=== PATIENT | male | born 1995 | race African-American/Black ===

== ENCOUNTER 2018-03-31 21:28 | Emergency (ER) | payer SELFPAY ==
[2018-03-31 21:28] VITALS: BP 165/96; PULSE 76; RESP 23; TEMP 37.2; O2SAT 96; BMI 27.1
--- NOTE | 2018-03-31 21:43 | EKG12_ITS ---
Test Reason : OD Blood Pressure : / mmHG Vent. Rate : 086 BPM Atrial Rate : 086 BPM P-R Int : 168 ms QRS Dur : 094 ms QT Int : 356 ms P-R-T Axes : 064 058 002 degrees QTc Int : 426 ms Normal sinus rhythm Nonspecific T wave abnormality Abnormal ECG Confirmed by CONRAD OSORIO, BULL ([id number]), online content editor CORY MARQUEZ ([id number]) on 04/04/2018 10:44:40 AM Referred By: MNOTANA Confirmed By:BULL MARTINES MD
[2018-03-31] MEDS: 0.9% Normal Saline 1,000 ML 1000 ML IV ×2 (21:48→22:33)
--- NOTE | 2018-03-31 21:50 | RAD_ITS ---
STUDY: X-RAY CHEST REASON FOR EXAM: Male, 22 years old. Unresponsive TECHNIQUE: COMPARISON: None. FINDINGS: The lungs are clear and expanded. There is no demonstrated pleural abnormality. Normal size heart. Normal mediastinum and stefani. Normal visualized pulmonary arteries. Normal visualized aortic arch and descending thoracic aorta. Normal visualized thoracic spine. Normal visualized ribs, clavicles, and shoulders. There is no demonstrated abnormality of the visualized soft tissue structures of the upper abdomen. RAD/Chest 1 View (Portable) IMPRESSION: Normal x-ray examination of the chest. Electronically Signed: Kaela Song MD at 22:09 EST Tel , Service support ,
--- NOTE | 2018-03-31 22:04 | ED.DCSUM_ITS ---
- ER Visit Summary Date of Service: 03/31/18 Chief Complaint: [] Drug overdose suicidal ideation History of Present Illness: The patient is a 22 M [] by EMS apparently per EMS and police there was a call to home the patient was upstairs on the floor of the bedroom unconscious, individuals there who apparently on the home claimed they did not know anything about the patient even his name, the indicated the patient had been expressing some suicidal thoughts and they reported he took Keflex doxycycline and then Xanax and Benadryl, he was brought to the emergency department on arrival his vital signs are stable 165/9596 pulse ox 96 on room air he is very sleepy he is arousable he does admit to taking the medications as above admits to being suicidal cannot provide any other history he denies any complaints of head neck chest or abdominal pain and there was no note dictated trauma Physical Examination: [] vs Signs as above he is groggy, he opens his eyes he answers questions yes and no when asked if he has any complaints of head neck chest or abdominal pain he denies his airways intact his pupils are 3 mm and reactive his lungs sound clear heart tones are normal the abdomen soft nontender upper lower extremities unremarkable he is moving all 4 extremities is no signs of trauma his GCS is 15 Test Results: [] Emergency Department Course and Treatment: [] Did immediately begin resuscitation with IV fluids screening labs etc. 2 female individuals came in later one was reportedly his friend the other reportedly was his sister none of this could be confirmed, the female friend refused to allow staff to execute the treatment plan I had ordered including fluids x-rays etc. I went to discuss all the above with these 2 individuals and the female friend began to get very vulgar and verbally abusive toward me and staff saying things like fuck all you doctors and other profane language, I explained to her that this verbal abuse would not be tolerated we would not allow her to interfere with the care of the patient and I ordered her out of the emergency department if necessary under police escort, at this time we will continue our resuscitation of the patient and will try to confirm the identity o f these 2 individuals and if the other individual is a sister we will provide information The black female who is with him is his sister his stepmother is also here now the other white female who was causing disruption in the patient's care is not related to the patient per the family The family confirms that the patient did verbalize to them this evening that he was depressed and suicidal, apparently has a court case tomorrow there is issues related to custody of children, he was quite upset about that he indicates the sister he was about to overdose she went to the home were all this occurred and found him semiconscious she does not know exactly what he took, the family reports the patient asked has no past history of any medical problems, he has no psychiatric or behavioral health history Treatment Plan: [] Time he remains awake alert his vital signs are stable we will obtain a screening labs admission may be required pending all of the above for medical clearance and then he will be seen by mental health services 11 PM, the patient is awake and alert now conversant his labs are generally unremarkable his tox screen is positive for an acetaminophen level of 11 repeat is pending at this time he is turned over to the evening physician but ultimate final disposition if he is medically stable his tox screens are negative will be via mental health services evaluation Disposition: [] Pending ED evaluation and mental health evaluation Impression: [] Drug overdose suicidal ideation This note was generated with [employer] dictation software. It may contain incorrect words, spelling, and punctuation that were not noted in review of the chart prior to signing ED Disposition - Plan for ED Patient: Chief Complaint: Overdose Referrals: Care Physician,No Primary [Primary Care Provider] -
[2018-03-31 22:08] LABS: Absolute Lymphocyte Count 1.81 X10^3/ul (0.83-4.51); Absolute Neutrophil Count 2.6 X10^3/uL (2.0-7.7); Basophil# 0.01 X10^3/uL; Basophil% 0.2 % (0-1); Eosinophil# 0.06 X10^3/uL; Eosinophils% 1.2 % (0-5); Hematocrit 45.2 % (40-54); Hemoglobin 16.1 g/dl (13.0-16.5); Lymphocyte # 1.81 X10^3/ul (4.0); Lymphocyte % 37.5 % (19-41); Mean Corp Hgb Conc 35.6 g/gl (32-36); Mean Corpuscular Hgb 32.4 pg (27.0-32.0); Mean Corpuscular Volume 90.9 fL (80-94); Mean Platelet Vol. 10.7 fl (6.2-12.0); Monocyte# 0.36 X10^3/uL; Monocyte% 7.5 % (0-10); Neutrophil # 2.58 X10^3/uL (2.7-7.7); Neutrophil % 53.4 % (47-70); Platelet Count 201 K/mm3 (150-450); RBC Distribution Width CV 12.9 % (11.6-14.6); RBC Distribution Width SD 42.9 fl (35.1-43.9); Red Blood Count 4.97 M/mm3 (4.6-6.2); White Blood Count 4.8 K/mm3 (4.4-11.0)
--- NOTE | 2018-03-31 22:10 | ED.RN ---
Patient one on one sitter started at this time. Previous observation was one on one with nurse at the bedside
[2018-03-31 22:14] LABS: POSITIVE COUNT NO; POSITIVE DIFFERENTIAL NO; POSITIVE MORPHOLOGY NO
[2018-03-31 22:28] VITALS: PULSE 83; RESP 14
[2018-03-31 22:31] VITALS: BP 148/67; PULSE 79; RESP 25; O2SAT 96
--- NOTE | 2018-03-31 22:31 | ED.RN ---
DRIVERS LICENSE GIVEN TO KEISHA.
[2018-03-31 22:32] VITALS: O2SAT 96
--- NOTE | 2018-03-31 22:38 | ED.RN ---
WHEN ASKED WHY THE PT WANTED TO HURT HIMSELF, HE STATED BECAUSE HE WAS DEPRESSED.
[2018-03-31 22:41] LABS: Anion Gap 6 (5-15); BUN 12 mg/dL (7-18); BUN/Creat Ratio 10.3 RATIO (10-20); Calcium,Total 9.2 mg/dL (8.5-10.1); Chloride 102 mmol/L (98-107); Creatinine, Serum 1.17 mg/dL (0.70-1.30); EST Glomerular Filtration Rate 82 mL/min (>60); Est Glom Filt Rate - Afr Amer 99 mL/min (>60); Estimated Creatinine Clearance 91.81 ml/min; Glucose 120 mg/dL (74-106); Potassium 3.3 mmol/L (3.5-5.1); Sodium Level 138 mmol/L (136-145)
[2018-03-31 22:46] LABS: Amphetamine Urine VISTA NEGATIVE (<1000 ng/mL); Barbiturate Urine VISTA NEGATIVE (< 200 ng/mL); Benzodiazepine Urine VISTA NEGATIVE (< 200 ng/mL); Cocaine Urine VISTA NEGATIVE (< 300 ng/mL); Ecstacy Urine VISTA NEGATIVE (< 500 ng/mL); Methadone Urine VISTA NEGATIVE (< 300 ng/mL); PCP Urine VISTA NEGATIVE (< 25 ng/mL); THC Urine VISTA NEGATIVE (< 50 ng/mL); Vista UDS pH Range 6
[2018-03-31 22:55] LABS: Salicylate < 1.7 mg/dL (2.8-20.0)
[2018-03-31 23:00] VITALS: BP 139/74; PULSE 92
--- NOTE | 2018-03-31 23:23 | ED.RN ---
crisis called and will be in to see patient
--- NOTE | 2018-03-31 23:29 | ED.RN ---
patients family took home patient clothing at this time
[2018-04-01] VITALS: BP 137/90; PULSE 87; RESP 21; O2SAT 97
[2018-04-01 00:23] LABS: Acetaminophen (Tylenol) Level 27.9 ug/mL (10.0-30.0)
[2018-04-01 01:00] VITALS: BP 142/62; PULSE 87; RESP 16; O2SAT 98
[2018-04-01 01:36] LABS: Acetaminophen (Tylenol) Level 27.2 ug/mL (10.0-30.0)
[2018-04-01 02:00] VITALS: BP 133/70; PULSE 87; RESP 16; O2SAT 96
--- NOTE | 2018-04-01 02:17 | ED.DEP ---
ED Disposition - Plan for ED Patient: Chief Complaint: Overdose Instructions: Counseling for Depression Referrals: Care Physician,No Primary [Primary Care Provider] - Counseling,Center [GROUP OF PHYSICIANS] -
[2018-04-01 02:34] VITALS: BP 133/72; PULSE 81; RESP 16; O2SAT 99
--- OUTSIDE RECORDS SUMMARY | 2018-05-18 03:38 | XMS RPT_ITS ---
:1995 Author Organization [facility] Care Team Providers Name Role Phone Primay Care Physicia, No Primary Care Unavailable Evangelina Rosario Attending Unavailable PROBLEMS PROBLEMS No Problem Records FoundPROCEDURES PROCEDURES No Procedure Records FoundRESULTS RESULTS 12 LEAD ELECTROCARDIOGRAM Observed: 04/04/2018 Status: F Source: [place] 10:45 AM [facility] REPOSITORY [facility] Cardiovascular Services [address] [place] [address] 12 Lead EKG 03/31/18 2202 MR#: [id number] Acct: [id number] Name: MATTEO SANTORO Rep #: [id number] : 1995 22 From: Anuj Martines MD Attending Dr: Status: DEP ER Ordering Dr: Evangelina Rosario MD Date: 03/31/18 Location: ED Sex: M AA Admitted: Test Reason : OD Blood Pressure : / mmHG Vent. Rate : 086 BPM Atrial Rate : 086 BPM P-R Int : 168 ms QRS Dur : 094 ms QT Int : 356 ms P-R-T Axes : 064 058 002 degrees QTc Int : 426 ms Normal sinus rhythm Nonspecific T wave abnormality Abnormal ECG Confirmed by ANUJ MARTINES MD ([id number]), publication editor CORY MARQUEZ ([id number]) on 04/04/2018 10:44:40 AM Referred By: SJ Confirmed By:ANUJ MARTINES MD 04/04/18 1044 Date Anuj Martines MD CC: MD Navjot Rosario; No Primary Care Physician Signed EMERGENCY DEPARTMENT Observed: 04/01/2018 Status: C Source: [place] SUMMARY 2:23 AM [facility] REPOSITORY [facility] Medical Records Department [address] [place] [address] Emergency Department Summary 03/31/18 2151 MR#: [id number] Acct: [id number] Name: MATTEO SANTORO Rep #: [id number] : 1995 22 From: Evangelina Rosario MD PCP: Care Physician, No Primary Status: REG ER ADDENDUM by Nyla Garcia MD on 04/01/18 at 0223 Patient was seen by the counseling center. They feel he is safe for discharge home with family. He contracted for safety. His initial Tylenol level was 11.0. A 3-hour level was 27.9. 4-hour level was obtained and is 27.2. Patient was set up for a counseling center appointment this week. He is advised to return to ED if he has any worsening complaints Date Nyla Garcia MD cc: No Primary Care Physician * Addendum - ER Visit Summary Date of Service: 03/31/18 Chief Complaint: [] Drug overdose suicidal ideation History of Present Illness: The patient is a 22 M [] by EMS apparently per EMS and police there was a call to home the patient was upstairs on the floor of the bedroom unconscious, individuals there who apparently on the home claimed they did not know anything about the patient even his name, the indicated the patient had been expressing some suicidal thoughts and they reported he took Keflex doxycycline and then Xanax and Benadryl, he was brought to the emergency department on arrival his vital signs are stable 165/9596 pulse ox 96 on room air he is very sleepy he is arousable he does admit to taking the medications as above admits to being suicidal cannot provide any other history he denies any complaints of head neck chest or abdominal pain and there was no note dictated trauma Physical Examination: [] vs Signs as above he is groggy, he opens his eyes he answers questions yes and no when asked if he has any complaints of head neck chest or abdominal pain he denies his airways intact his pupils are 3 mm and reactive his lungs sound clear heart tones are normal the abdomen soft nontender upper lower extremities unremarkable he is moving all 4 extremities is no signs of trauma his GCS is 15 Test Results: [] Emergency Department Course and Treatment: [] Did immediately begin resuscitation with IV fluids screening labs etc. 2 female individuals came in later one was reportedly his friend the other reportedly was his sister none of this could be confirmed, the female friend refused to allow staff to execute the treatment plan I had ordered including fluids x-rays etc. I went to discuss all the above with these 2 individuals and the female friend began to get very vulgar and verbally abusive toward me and staff saying things like fuck all you doctors and other profane language, I explained to her that this verbal abuse would not be tolerated we would not allow her to interfere with the care of the patient and I ordered her out of the emergency department if necessary under police escort, at this time we will continue our resuscitation of the patient and will try to confirm the identity of these 2 individuals and if the other individual is a sister we will provide information The black female who is with him is his sister his stepmother is also here now the other white female who was causing disruption in the patient's care is not related to the patient per the family The family confirms that the patient did verbalize to them this evening that he was depressed and suicidal, apparently has a court case tomorrow there is issues related to custody of children, he was quite upset about that he indicates the sister he was about to overdose she went to the home were all this occurred and found him semiconscious she does not know exactly what he took, the family reports the patient asked has no past history of any medical problems, he has no psychiatric or behavioral health history Treatment Plan: [] Time he remains awake alert his vital signs are stable we will obtain a screening labs admission may be required pending all of the above for medical clearance and then he will be seen by mental health services 11 PM, the patient is awake and alert now conversant his labs are generally unremarkable his tox screen is positive for an acetaminophen level of 11 repeat is pending at this time he is turned over to the evening physician but ultimate final disposition if he is medically stable his tox screens are negative will be via mental health services evaluation Disposition: [] Pending ED evaluation and mental health evaluation Impression: [] Drug overdose suicidal ideation This note was generated with Dragon dictation software. It may contain incorrect words, spelling, and punctuation that were not noted in review of the chart prior to signing ED Disposition - Plan for ED Patient: Chief Complaint: Overdose Referrals: Care Physician,No Primary [Primary Care Provider] - What to do if you have Problems For any increased pain, shortness of breath, bleeding, nausea or vomiting, chest pain, or any unexpected problems, contact your Primary Care Provider. Call [facility] ([phone]) or report to the closest Emergency Room. Call 911 if necessary. 03/31/18 2300 <Electronically signed by Evangelina Rosario MD> Date Evangelina Rosario MD Cosigner Signature (If Indicated): Date CC: No Primary Care Physician DISCHARGE INSTRUCTION Observed: 04/01/2018 Status: F Source: [place] 2:18 AM [facility] REPOSITORY [facility] Medical Records Department [address] [place] [address] Discharge Instruction 04/01/18216 MR#: [id number] Acct: [id number] Name: MATTEO SANTORO Rep #: [id number] : 1995 22 From: Nyla Garcia MD PCP: Care Physician, No Primary Status: REG ER ED Disposition - Plan for ED Patient: Chief Complaint: Overdose Instructions: Counseling for Depression Referrals: Care Physician,No Primary [Primary Care Provider] - Counseling,Center [GROUP OF PHYSICIANS] - What to do if you have Problems For any increased pain, shortness of breath, bleeding, nausea or vomiting, chest pain, or any unexpected problems, contact your Primary Care Provider. Call [facility] ([phone]) or report to the closest Emergency Room. Call 911 if necessary. 04/01/18217 <Electronically signed by Nyla Garcia MD> Date Nyla Aparicio Signature (If Indicated): Date CC: No Primary Care Physician ACETAMINOPHEN (TYLENOL) Collected: 04/01/2018 Status: F Source: [place] LEVEL 12:50 AM [facility] REPOSITORY TYPE CODE TESTS RESULT OUT OF REFERENCE UNITS RANGE LAB L501.8400 10.0-30.0 ug/mL ACETAMINOPHEN Normal 27.2 Performed By: #### L501.8400 #### [facility] Laboratory [address] [place], [place], [address] ACETAMINOPHEN (TYLENOL) Collected: 03/31/2018 Status: F Source: [place] LEVEL 11:40 PM [facility] REPOSITORY TYPE CODE TESTS RESULT OUT OF REFERENCE UNITS RANGE LAB L501.8400 10.0-30.0 ug/mL ACETAMINOPHEN Normal 27.9 Performed By: #### L501.8400 #### [facility] Laboratory [address] [place], [place], [address] URINE DRUG SCREEN Collected: 03/31/2018 Status: F Source: [place] (VISTA) 10:05 PM [facility] REPOSITORY TYPE CODE TESTS RESULT OUT OF RANGE REFERENCE UNITS LAB L505.0075 TO BE Normal CONFIRMED Result Comment: CONFIRMATORY TESTING FOR ALL POSITIVE URINE DRUG SCREEN RESULTS WILL ONLY BE SENT OUT UPON PHYSICIAN ORDER. VISTA Urine Drug Screen methods provide only preliminary analytical test results. A more specific alternate chemical method must be used in order to obtain a confirmed analytical result. Gas chromatography/mass spectrometery (GC/MS) is the preferred confirmatory method. Clinical consideration and professional judgement should be applied to any drug of abuse test result, particularly when preliminary positive results are used. URINE TCA TESTING MUST BE ORDERED SEPARATELY. USE TEST MNEMONIC: [facility] LAB L505.5005 VISTA UDS PH 6 Normal LAB L505.5015 <1000 ng/mL AMPHETAMINES Normal NEGATIVE LAB L505.5025 < 200 ng/mL BARBITIURATES Normal NEGATIVE LAB L505.5035 < 200 ng/mL BENZODIAZIPINE Normal NEGATIVE LAB L505.5045 < 300 ng/mL COCAINE Normal NEGATIVE LAB L505.5055 < 500 ng/mL ECSTACY Normal NEGATIVE LAB L505.5065 < 300 ng/mL METHADONE Normal NEGATIVE LAB L505.5075 < 300 ng/mL OPIATES Normal NEGATIVE LAB L505.5085 < 25 ng/mL PCP Normal NEGATIVE LAB L505.5095 < 50 ng/mL THC Normal NEGATIVE Performed By: #### L505.5000 #### [facility] [address] [place], [address] CHEST 1 VIEW Observed: 03/31/2018 Status: F Source: [place] (PORTABLE) 9:45 PM [facility] REPOSITORY [facility] Imaging Services [address] [place] [address] Chest 1 View (Portable) MR#: [id number] Acct: [id number] Name: MATTEO SANTORO Rep #: [id number] : 1995 M 22 From: Kaela Song MD PCP: Care Physician, No Primary Status: PRE ER Study: Chest 1 View (Portable) Date of Exam: 03/31/18 Exam# [id number] Ordering Dr: Evangelina Rosario MD STUDY: X-RAY CHEST REASON FOR EXAM: Male, 22 years old. Unresponsive TECHNIQUE: COMPARISON: None. FINDINGS: The lungs are clear and expanded. There is no demonstrated pleural abnormality. Normal size heart. Normal mediastinum and stefani. Normal visualized pulmonary arteries. Normal visualized aortic arch and descending thoracic aorta. Normal visualized thoracic spine. Normal visualized ribs, clavicles, and shoulders. There is no demonstrated abnormality of the visualized soft tissue structures of the upper abdomen. RAD/Chest 1 View (Portable) IMPRESSION: Normal x-ray examination of the chest. Electronically Signed: Kaela Song MD at 22:09 EST Tel , Service support , CC: MD Navjot Rosario; No Primary Care Physician Senior It Auditor: Signed CBC W/DIFF, AUTOMATED Collected: 03/31/2018 Status: F Source: [place] 9:35 PM [facility] REPOSITORY TYPE CODE TESTS RESULT OUT OF RANGE REFERENCE UNITS LAB L100.1000 4.4-11.0 K/mm3 Normal WBC 4.8 LAB L100.1200 4.6-6.2 M/mm3 Normal RBC 4.97 LAB L100.1300 13.0-16.5 g/dl Normal HGB 16.1 LAB L100.1400 40-54 % Normal HCT 45.2 LAB L100.1500 80-94 fL Normal MCV 90.9 LAB L100.1600 27.0-32.0 pg High MCH 32.4 LAB L100.1700 32-36 g/gl Normal MCHC 35.6 LAB L100.1810 11.6-14.6 % Normal RDW CV 12.9 LAB L100.1820 35.1-43.9 fl Normal RDW SD 42.9 LAB L100.1900 150-450 K/mm3 Normal PLT 201 LAB L100.2000 6.2-12.0 fl Normal MPV 10.7 LAB L100.2100 47-70 % Normal NEUT% 53.4 LAB L100.2200 19-41 % Normal LY% 37.5 LAB L100.2300 0-10 % Normal MONO% 7.5 LAB L100.2400 0-5 % Normal EO% 1.2 LAB L100.2500 0-1 % Normal BASO% 0.2 LAB L100.2550 0.0-0.9 % Normal IM GRAN % 0.200 Result Comment: IG% - Immature Granulocytes (promyelocytes, myelocytes and metamyelocytes) > 1% indicates that a LEFT SHIFT is Present. LAB L100.2620 2.0-7.7 X10 3/uL Normal Absolute Neut 2.6 LAB L100.2720 0.83-4.51 X10 3/ul Normal Absolute Lymph 1.81 Performed By: #### L100.0100 #### [facility] [address] [place], [address] BASIC METABOLIC Collected: 03/31/2018 Status: F Source: [place] PROFILE (BMP) 9:35 PM [facility] REPOSITORY TYPE CODE TESTS RESULT OUT OF RANGE REFERENCE UNITS LAB L501.0100 74-106 mg/dL High GLU 120 Result Comment: Fasting Glucose result from 100 to 125 mg/dL suggests IMPAIRED HOMEOSTASIS per A.D.A. criteria. Please note revised GLUCOSE reference range effective 2017. LAB L501.1000 7-18 mg/dL Normal BUN 12 LAB L501.1100 0.70-1.30 mg/dL Normal CREAT,SERUM 1.17 Result Comment: The validity of the calculated GFR AND GFRAA in patients over 70 years has not been determined. Clinical correlation is essential. LAB L501.1110 >60 mL/min Normal EST GFR 82 Result Comment: Non- GFR Calc LAB L501.1115 >60 mL/min Normal EST GFR - AA 99 Result Comment: GFR Calc LAB L501.1255 ml/min Normal Estimated CRCL 91.81 LAB L501.1300 10-20 RATIO Normal BUN/CRE 10.3 LAB L501.2200 8.5-10 mg/dL Normal .1 CA 9.2 LAB L501.5300 136-14 mmol/L Normal 5 NA 138 LAB L501.5600 3.5-5. mmol/L Low 1 K 3.3 LAB L501.5900 98-107 mmol/L Normal CL 102 LAB L501.6100 21.0-3 mmol/L Normal 2.0 CO2 30.0 LAB L501.6200 5-15 Normal GAP 6 Performed By: #### L500.2500, L501.4010 #### [facility] [address] [place], [place], [address] TROPONIN-I Collected: 03/31/2018 Status: F Source: [place] 9:35 PM [facility] REPOSITORY TYPE CODE TESTS RESULT OUT OF RANGE REFERENCE UNITS LAB L501.4010 <0.045 ng/mL Normal < 0.015 TROPONIN-I Result Comment: TROPONIN-I EXPECTED VALUES <0.045 Negative 0.045 - 0.590 Consistent with Cardiac Damage > OR = 0.600 Critical Value Not every elevated troponin is indicative of PA. These values should be used with clinical judgement in examining the patient's clinical picture for diagnosis. To establish a diagnosis of PA versus myocardial injury, there must be a demonstrated rise and/or fall in the troponin values, in addition to ischemic symptoms, EKG changes, new regional wall motion abnormality, and/or angiographical evidence. PLEASE NOTE: REFERENCE RANGES EDITED 17 Performed By: #### L500.2500, L501.4010 #### [facility] [address] [place], [address] ACETAMINOPHEN (TYLENOL) Collected: 03/31/2018 Status: F Source: [place] LEVEL 9:35 PM [facility] REPOSITORY TYPE CODE TESTS RESULT OUT OF REFERENCE UNITS RANGE LAB L501.8400 10.0-30.0 ug/mL ACETAMINOPHEN Normal 11.0 Performed By: #### L501.8400, L501.9100 #### [facility] [address] [place], [address] ALCOHOL, BLOOD Collected: 03/31/2018 Status: F Source: [place] (MEDICAL)-SERUM 9:35 PM [facility] REPOSITORY TYPE CODE TESTS RESULT OUT OF RANGE REFERENCE UNITS LAB L501.9100 mg/dL Normal SERUM 11.0 ETOH Result Comment: The serum:whole blood ethanol ratio is approximately 1.14 and varies slightly with hematocrit. Medical Alcohol reference interval and critical value in non-tolerant individuals; 50 - 100 Impairment 100 Intoxication 100 - 250 Severe Poisoning 250 - 400 Deep/possible fatal coma Performed By: #### L501.8400, L501.9100 #### [facility] [address] [place], [address] SALICYLATE Collected: 03/31/2018 Status: F Source: [place] 9:35 PM [facility] REPOSITORY TYPE CODE TESTS RESULT OUT OF REFERENCE UNITS RANGE LAB L501.8300 2.8-20.0 mg/dL Low SALICYLATE < 1.7 Performed By: #### L501.8300 #### [facility] [address] [place], [address] PROGRESS Observed: 07/31/2017 Status: COMPLETED Source: [place] 6:54 PM [facility] REPOSITORY O ID: [id number] Author: Kat Parker Service: (none) Author Type: Nurse Practitioner Type: Progress Notes Filed: 07/31/2017 7:08 PM Note Text: Subjective HPI HPI Matteo Santoro is a 21 year old male who presents today for CC of left ear pain This started yesterday He denies any fever, loss of hearing or drainage Symptoms are worsened by nothing He has tried peroxide, motrin, with slight relief. Risk factors wears ear plugs at work PMH cerumen impaction BP 110/80 Pulse 88 Temp 37.1 ?C (98.7 ?F) (Tympanic) Resp 16 Wt 80.7 kg (178 lb) ALLERGIES No Known Allergies There is no problem list on file for this patient. No family history on file. Social History Marital status: Single Spouse name: Years of education: Number of children: Social History Main Topics Smoking status: Current Every Day Smoker Packs/day: 0.00 Years: 0.00 Smokeless status: Never Used Review of Systems Constitutional: Negative. Negative for chills, fever and malaise/fatigue. HENT: Positive for ear pain (presure). Negative for congestion, sinus pain and sore throat. Respiratory: Negative for cough, sputum production, shortness of breath and wheezing. Cardiovascular: Negative for chest pain. Musculoskeletal: Negative for myalgias. Skin: Negative for rash. Neurological: Negative for headaches. Objective Physical Exam Constitutional: He is oriented to person, place, and time and well-developed, well-nourished, and in no distress. HENT: Head: Normocephalic and atraumatic. Right Ear: Tympanic membrane, external ear and ear canal normal. Tympanic membrane is not injected, not erythematous, not retracted and not bulging. No middle ear effusion. Left Ear: Ear canal normal. There is drainage (cerumen impaction). Tympanic membrane is bulging (bubbles present). Tympanic membrane is not injected, not erythematous and not retracted. A middle ear effusion (serous) is present. Nose: Nose normal. Right sinus exhibits no maxillary sinus tenderness and no frontal sinus tenderness. Left sinus exhibits no maxillary sinus tenderness and no frontal sinus tenderness. Mouth/Throat: Uvula is midline, oropharynx is clear and moist and mucous membranes are normal. No oropharyngeal exudate, posterior oropharyngeal edema, posterior oropharyngeal erythema or tonsillar abscesses. Kat Parker APRN.NONPROFIT FUNDRAISER removed impacted cerumen using a plastic curette using standard procedure without complication. Patient tolerated procedure well See exam after removal in left ear Eyes: Conjunctivae and EOM are normal. Pupils are equal, round, and reactive to light. Neck: Normal range of motion. Neck supple. Pulmonary/Chest: Effort normal. Lymphadenopathy: Head (right side): No submental, no submandibular, no tonsillar, no preauricular and no posterior auricular adenopathy present. Head (left side): No submental, no submandibular, no tonsillar, no preauricular and no posterior auricular adenopathy present. He has no cervical adenopathy. Right: No supraclavicular adenopathy present. Left: No supraclavicular adenopathy present. Neurological: He is alert and oriented to person, place, and time. Skin: Skin is warm and dry. Psychiatric: Affect normal. Nursing note and vitals reviewed. ASSESSMENT/PLAN: 1. Impacted cerumen of left ear - ICD9: 380.4, ICD10: H61.22 Use may use OTC Debrox or Cerumenex for maintenance. Hydrogen peroxide and water to clean as needed Avoid inserting Q-tips into your ears. Follow up with your PCP as needed. Zyrtec 10 mg By mouth daily at bedtime 2. Acute serous otitis media of left ear, recurrence not specified - ICD9: 381.01, ICD10: H65.02 Flonase 1 spray each nostril two times a day. Zyrtec 10 mg By mouth daily at bedtime Diagnosis and treatment plan were discussed and questions were answered to the patient's satisfaction. Pt acknowledged understanding of concepts and follow up plan. Specific signs and symptoms that would indicate the need for higher level of care were discussed in detail warranting prompt ER evaluation. Kat Parker APRN.NONPROFIT FUNDRAISER CNOV Observed: 07/31/2017 Status: COMPLETED Source: [place] 6:45 PM [facility] REPOSITORY Office Visit ([facility]) MATTEO SANTORO ([id number]) 1995 M UPA Date Time Provider Department 07/31/17 6:45 PM KAT PARKER (MARY) [facility] During your visit today, we recorded the following information about you: Temperature Pulse Respiration Blood pressure 98.7 degrees 88/minute 16/minute 110/80 Weight 80.7 kg Kat Parker APRN.CNP 07/31/2017 7:08 PM Signed Subjective HPI HPI Matteo Santoro is a 21 year old male who presents today for CC of left ear pain This started yesterday He denies any fever, loss of hearing or drainage Symptoms are worsened by nothing He has tried peroxide, motrin, with slight relief. Risk factors wears ear plugs at work PMH cerumen impaction BP 110/80 Pulse 88 Temp 37.1 ?C (98.7 ?F) (Tympanic) Resp 16 Wt 80.7 kg (178 lb) ALLERGIES No Known Allergies There is no problem list on file for this patient. No family history on file. Social History Marital status: Single Spouse name: Years of education: Number of children: Social History Main Topics Smoking status: Current Every Day Smoker Packs/day: 0.00 Years: 0.00 Smokeless status: Never Used Review of Systems Constitutional: Negative. Negative for chills, fever and malaise/fatigue. HENT: Positive for ear pain (presure). Negative for congestion, sinus pain and sore throat. Respiratory: Negative for cough, sputum production, shortness of breath and wheezing. Cardiovascular: Negative for chest pain. Musculoskeletal: Negative for myalgias. Skin: Negative for rash. Neurological: Negative for headaches. Objective Physical Exam Constitutional: He is oriented to person, place, and time and well-developed, well-nourished, and in no distress. HENT: Head: Normocephalic and atraumatic. Right Ear: Tympanic membrane, external ear and ear canal normal. Tympanic membrane is not injected, not erythematous, not retracted and not bulging. No middle ear effusion. Left Ear: Ear canal normal. There is drainage (cerumen impaction). Tympanic membrane is bulging (bubbles present). Tympanic membrane is not injected, not erythematous and not retracted. A middle ear effusion (serous) is present. Nose: Nose normal. Right sinus exhibits no maxillary sinus tenderness and no frontal sinus tenderness. Left sinus exhibits no maxillary sinus tenderness and no frontal sinus tenderness. Mouth/Throat: Uvula is midline, oropharynx is clear and moist and mucous membranes are normal. No oropharyngeal exudate, posterior oropharyngeal edema, posterior oropharyngeal erythema or tonsillar abscesses. Kat Parker APRN.NONPROFIT FUNDRAISER removed impacted cerumen using a plastic curette using standard procedure without complication. Patient tolerated procedure well See exam after removal in left ear Eyes: Conjunctivae and EOM are normal. Pupils are equal, round, and reactive to light. Neck: Normal range of motion. Neck supple. Pulmonary/Chest: Effort normal. Lymphadenopathy: Head (right side): No submental, no submandibular, no tonsillar, no preauricular and no posterior auricular adenopathy present. Head (left side): No submental, no submandibular, no tonsillar, no preauricular and no posterior auricular adenopathy present. He has no cervical adenopathy. Right: No supraclavicular adenopathy present. Left: No supraclavicular adenopathy present. Neurological: He is alert and oriented to person, place, and time. Skin: Skin is warm and dry. Psychiatric: Affect normal. Nursing note and vitals reviewed. ASSESSMENT/PLAN: 1. Impacted cerumen of left ear - ICD9: 380.4, ICD10: H61.22 Use may use OTC Debrox or Cerumenex for maintenance. Hydrogen peroxide and water to clean as needed Avoid inserting Q-tips into your ears. Follow up with your PCP as needed. Zyrtec 10 mg By mouth daily at bedtime 2. Acute serous otitis media of left ear, recurrence not specified - ICD9: 381.01, ICD10: H65.02 Flonase 1 spray each nostril two times a day. Zyrtec 10 mg By mouth daily at bedtime Diagnosis and treatment plan were discussed and questions were answered to the patient's satisfaction. Pt acknowledged understanding of concepts and follow up plan. Specific signs and symptoms that would indicate the need for higher level of care were discussed in detail warranting prompt ER evaluation. BRAYDEN Mercedes APRN.CNP 07/31/2017 7:08 PM Addendum ASSESSMENT/PLAN: 1. Impacted cerumen of left ear - ICD9: 380.4, ICD10: H61.22 Use may use OTC Debrox or Cerumenex for maintenance. Hydrogen peroxide and water to clean as needed Avoid inserting Q-tips into your ears. Follow up with your PCP as needed. 2. Acute serous otitis media of left ear, recurrence not specified - ICD9: 381.01, ICD10: H65.02 Flonase 1 spray each nostril two times a day. Zyrtec 10 mg By mouth daily at bedtime Referring Provider: SELF [200] Allergies As of Date: 07/31/2017 (No Known Allergies) Date Reviewed: 07/31/2017 Reviewed by: Kat (Mary) Elena - Fully Assessed Reason for Visit: left ear pain [Other] Cmt: x 1 day Primary Visit Diagnosis:Impacted cerumen of left ear [H61.22] Other Visit Diagnosis:Acute serous otitis media of left ear, recurrence not specified [H65.02] Problem List As Of Date: 07/31/2017 (None) Other instructions from your clinician: ASSESSMENT/PLAN: 1. Impacted cerumen of left ear - ICD9: 380.4, ICD10: H61.22 Use may use OTC Debrox or Cerumenex for maintenance. Hydrogen peroxide and water to clean as needed Avoid inserting Q-tips into your ears. Follow up with your PCP as needed. 2. Acute serous otitis media of left ear, recurrence not specified - ICD9: 381.01, ICD10: H65.02 Flonase 1 spray each nostril two times a day. Zyrtec 10 mg By mouth daily at bedtime Letter Text Kat Parker APRN.CNP Urgent Care [address] [facility] [address] Dept: [phone] 07/31/2017 Matteo Santoro [address] [place] [id number] To Whom it May Concern: This is to certify that Matteo Santoro was seen at our office for medical care. Matteo may return to work on 08.01.2017. If you have any questions please feel free to call. Sincerely: Kat Parker APRN.CNP Encounter Status:Closed by KAT PARKER CNP on 07/31/17 ALLERGIES ALLERGIES DATE TYPE / CODE NAME / CODE REACTION SEVERITY SOURCE 03/31/2018 Drug No Known Unknown [facility] Allergy/416 Allergies/L42121 Hospital [id number](SNOM 0388(RXNORM) Repository ED CT) Drug NO KNOWN [facility] Class/35551 ALLERGIES [place] 1003(SNOMED Repository CT) ENCOUNTERS ENCOUNTERS ADMIT/DISCHARGE ACCOUNT ADMITTING ENCOUNTER LOCATION SOURCE NUMBER CLASS 03/31/2018/04/01/20 [id number] Emergency [address] ing:ED Repository 07/31/2017/08/02/19 [id number] Ambulatory [address] Repository PAYERS PAYERS ENCOUNTER GUARANTOR PAYER SUBSCRIBER SOURCE 03/31/2018 [facility]oro1855 [facility]:SELF PAY [address] Number: Effective Repository [id number]: [phone] Date:2018-03-31 [phone] ()
== END 2018-04-01 02:44 ==
PROVIDERS: Emergency Medicine; Emergency Provider Emergency Medicine
DX: T42.4X2A Poisoning by benzodiazepines, intentional self-harm, initial encounter (principal); T36.4X2A Poisoning by tetracyclines, intentional self-harm, initial encounter; T45.0X2A Poisoning by antiallergic and antiemetic drugs, intentional self-harm, initial encounter; Y92.009 Unspecified place in unspecified non-institutional (private) residence as the place of occurrence of the external cause
CPT/HCPCS: 36415; 71045; 80048; 80307; 80320; 80329; 84484; 85025; 93005; 99285; J7030; A4216; G0480

== ENCOUNTER 2018-10-17 22:58 | Emergency (ER) | payer SELFPAY ==
[2018-10-17 22:58] VITALS: BP 113/69; PULSE 93; RESP 14; TEMP 36.8; O2SAT 98; BMI 27.4
[2018-10-17] MEDS: Fluorescein 1 MG STRIP 1 STRIP RIGHT EYE (23:49)
[2018-10-17] MEDS: Tetracaine 0.5% Ophthalmic Bottle 1 DRP RIGHT EYE (23:49)
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
--- NOTE | 2018-10-17 23:56 | ED.DEP ---
ED Disposition - Plan for ED Patient: Disposition: Home or Assisted Living Instructions: Corneal Injury Referrals: Care Physician,No Primary [Primary Care Provider] - Ray Lomax MD [STAFF PHYSICIAN] -
[2018-10-18 00:06] VITALS: BP 110/79; PULSE 96; RESP 16; O2SAT 99
== END 2018-10-18 00:07 | disposition home or self-care (01) ==
PROVIDERS: Emergency Provider Emergency Medicine
DX: S05.01XA Injury of conjunctiva and corneal abrasion without foreign body, right eye, initial encounter (principal); X58.XXXA Exposure to other specified factors, initial encounter; Y93.9 Activity, unspecified; Y92.89 Other specified places as the place of occurrence of the external cause; Y99.9 Unspecified external cause status; Z72.0 Tobacco use
CPT/HCPCS: 99282

== ENCOUNTER 2018-12-22 09:08 | Emergency (ER) | payer SELFPAY ==
[2018-12-22 09:09] VITALS: BP 149/92; PULSE 95; RESP 16; TEMP 36.6; O2SAT 98; BMI 25.8
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
[2018-12-22] MEDS: Tetracaine 0.5% Ophthalmic Bottle 1 DRP RIGHT EYE (11:04)
[2018-12-22] MEDS: Fluorescein 1 MG STRIP 1 STRIP RIGHT EYE (11:04)
--- NOTE | 2018-12-22 11:10 | ED.DEP ---
ED Disposition - Plan for ED Patient: Disposition: Home or Assisted Living Instructions: ED Corneal Abrasion Referrals: Raimundo Goldberg MD [STAFF PHYSICIAN] - 1-2 Days if not improving Additional Instructions: Right eye. Sunglasses to prevent glare. Bacitracin eye ointment 2-3 times a day till gone. Tetracaine eyedrops for pain for the next 24 hours. Do not use them after Saturday night. They retard healing if you use them long-term. Tylenol Motrin for pain. Follow-up with an eye doctor if not improving.
== END 2018-12-22 11:23 | disposition home or self-care (01) ==
PROVIDERS: Emergency Provider Emergency Medicine
DX: S05.01XA Injury of conjunctiva and corneal abrasion without foreign body, right eye, initial encounter (principal); W51.XXXA Accidental striking against or bumped into by another person, initial encounter; Y93.83 Activity, rough housing and horseplay; Y92.9 Unspecified place or not applicable; Y99.9 Unspecified external cause status; Z72.0 Tobacco use
CPT/HCPCS: 99283

== ENCOUNTER 2023-10-01 10:06 | Emergency (ER) | payer OTHER, SELFPAY ==
[2023-10-01 10:07] VITALS: BP 137/95; PULSE 105; RESP 15; TEMP 37.2; O2SAT 99
--- NOTE | 2023-10-01 10:22 | EX.ED.DYSGE1 ---
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 EMS was called, he had pinpoint pupils so they gave him Narcan, and he woke up. They state that initially he had sonorous respirations and had sats in the 80s but upon waking up his saturations normalized. They checked a blood sugar and it was 240. Patient states he feels fine now. He states about an hour before this occurred, he took a single Percocet tablet because of dental pain has been having right third molar crowding-related. He states he is fairly certain he only took 1. He does not use any illicit substances. It was prescribed to him. He did not eat anything with it. He states when he was in the paint [place], he was there for only about 10 minutes, and he was wearing self-contained breathing apparatus and does not think he was smelling a lot of fumes. He states he was doing at the way he was supposed to at work. PFSH PFS Medical History no medical history no medical history Home Medications ?Medication ?Instructions ?Recorded ?Last Taken ?Type metformin 500 mg tablet 500 mg PO BID #60 tabs 10/01/23 Unknown Rx Allergy/AdvReac Type Severity Reaction Status Date / Time No Known Allergies Allergy Verified 10/01/23 10:18 Social History (Updated 10/01/23 @ 10:[address] Mukund Demarco MD) Smoking Status: Never smoker substance use type: does not use ROS ROS ED Constitutional Constitutional ED: Denies chills or fever(s) Eyes Eyes: Denies change in vision or diplopia ENT ENT ED: Reports as per HPI and dental pain; Denies rhinorrhea or sore throat Cardiovascular Cardiovascular: Denies chest pain or palpitations Respiratory/Chest Respiratory/Chest: Denies cough or dyspnea Gastrointestinal Gastrointestinal: Denies abdominal pain, diarrhea, nausea or vomiting Genitourinary Genitourinary ED: Denies dysuria or hematuria Musculoskeletal Musculoskeletal: Denies back pain or neck pain Integumentary Denies abscess or rash Neurologic Neurologic: Denies headache(s), paresthesias or weakness Psychiatric Psychiatric: Denies anxiety or suicidal thoughts EXAM Physical Exam Const Vital Signs: 10/01/23 10:07 Temperature 98.9 F Temperature Source Temporal Pulse Rate 105 H Respiratory Rate 15 Blood Pressure 137/95 H Blood Pressure Mean 109 Pulse Ox 99 Oxygen Delivery Method Room Air Positive well nourished and well developed General Appearance ED: well developed and NAD HEENT Reports moist mucous membranes HEENT Narrative: No trismus no dental abscess, no reproducible tenderness. normocephalic and atraumatic Eyes PERRL and EOMs intact bilaterally Neck full ROM and supple Resp normal respiratory effort and clear to auscultation bilaterally Cardio regular rate, regular rhythm and no murmurs GI non-tender and non-distended Auscultation: normoactive bowel sounds Palpation: soft Back/Spine no CVA tenderness General Back: other FROM Extremity normal to inspection General Extremety ED: Negative for edema, pulses abnormal or tenderness General Extremity: Negative for edema or pulses abnormal Neuro oriented x3, CN's II-XII intact bilaterally and no sensory deficits noted Sensorium / Orientation: awake and alert Motor Exam: strength 5/5 throughout Skin no rashes or lesions noted and no wounds MDM MDM MDM Narrative Medical decision making narrative: Patient looks well now with normal vital signs his pupils are 1 to 2 mm, and he is coherent and appears well. Obtaining some basic labs to assess kidney function but overall we will at least observe him until the Narcan wears off and reassess. 1.5 hours after arrival patient is doing well, asymptomatic. He has some mild hyperglycemia 235 on his chemistries, and his creatinine is 1.38 which is little higher than his old one. Patient is unaware of any diabetes diagnoses. He states his mom had it. He does not have a PCP. It is possible that his episode today had something to do with the equipment he was using in the [employer] [place], but also probably related to the fact that he took oxycodone an hour before work. I recommend that he not do that anymore, discussed all of this with him and his significant other, I am okay with him going home right now I think putting him on metformin 500 mg twice daily would be reasonable, and having him follow-up with the PCP. Refer to the next doctor on the unassigned list, Dr. Jordan. Lab Data Attestation: I reviewed the patient's lab results. Labs: Laboratory Results - last 24 hr 10/01/23 10:15 WBC 8.5 RBC 4.88 Hgb 14.4 Hct 44.3 MCV 90.8 MCH 29.5 MCHC 32.5 RDW Std Deviation 42.9 RDW Coeff of [place] 13.0 Plt Count 301 MPV 10.4 Immature Gran % (Auto) 0.400 Neut % (Auto) 31.2 L Lymph % (Auto) 56.6 H [place] % (Auto) 8.7 Eos % (Auto) 2.4 Baso % (Auto) 0.7 Absolute Neuts (auto) 2.6 Absolute Lymphs (auto) 4.79 H Nucleated RBC % 0 Sodium 137 Potassium 3.5 Chloride 106 Carbon Dioxide 22.0 Anion Gap 9 BUN 15 Creatinine 1.38 H Est GFR (MDRD) Af Amer 78 Est GFR (MDRD) Non-Af 65 BUN/Creatinine Ratio 10.9 Glucose 235 H Calcium 9.4 Discharge Plan Triage Chief Complaint: Overdose ED Provider: Mukund Demarco Dx/Rx/DC Orders Clinical Impression: Transient alteration of awareness, Hyperglycemia, Acute renal insufficiency Instructions: ED Renal Insufficiency, ED Hyperglycemia New Poss Diabetes Prescriptions: New metformin 500 mg tablet 500 mg PO BID Qty: 60 0RF Stand Alone Forms: ED Work / School Excuse Primary Care Provider: Care Physician,No Primary Referrals: Wayne Jordan, [Med Staff - Rotational Moulding Operator] - As soon as possible Care Physician,No Primary [Primary Care Provider] - Activity Restrictions/Additional Instructions: Avoid taking prescription narcotic before work or driving -- take aleve or ibuprofen instead and save the prescription for nighttime or when you know you will be at home for awhile. Print Language: Andorran Disposition Disposition: Home, Self Care
[2023-10-01 10:23] LABS: Absolute Lymphocyte Count 4.79 X10^3/uL (0.83-4.51); Absolute Neutrophil Count 2.6 X10^3/uL (2.0-7.7); Basophil# 0.06 X10^3/uL; Basophil% 0.7 % (0-1); Eosinophils% 2.4 % (0-5); Hematocrit 44.3 % (40-54); Hemoglobin 14.4 g/dL (13.0-16.5); Lymphocyte # 4.79 X10^3/ul (0.83-4.51); Lymphocyte % 56.6 % (19-41); Mean Corp Hgb Conc 32.5 g/dL (32-36); Mean Corpuscular Hgb 29.5 pg (27.0-32.0); Mean Corpuscular Volume 90.8 fL (80-94); Mean Platelet Vol. 10.4 fl (6.2-12.0); Monocyte# 0.74 X10^3/uL; Monocyte% 8.7 % (0-10); NRBC Flagged by Analyzer 0 % (0-5); Neutrophil # 2.64 X10^3/uL (2.7-7.7); Neutrophil % 31.2 % (47-70); Platelet Count 301 K/mm3 (150-450); RBC Distribution Width SD 42.9 fl (35.1-43.9); Red Blood Count 4.88 M/mm3 (4.6-6.2); White Blood Count 8.5 K/mm3 (4.4-11.0)
[2023-10-01 10:36] LABS: Anion Gap 9 (5-15); BUN 15 mg/dL (7-18); BUN/Creat Ratio 10.9 RATIO (10-20); Calcium,Total 9.4 mg/dL (8.5-10.1); Chloride 106 mmol/L (98-107); Creatinine, Serum 1.38 mg/dL (0.70-1.30); EST Glomerular Filtration Rate 65 mL/min (>60); Est Glom Filt Rate - Afr Amer 78 mL/min (>60); Glucose 235 mg/dL (74-106); Potassium 3.5 mmol/L (3.5-5.1); Sodium Level 137 mmol/L (136-145)
[2023-10-01 12:15] VITALS: BP 162/62; PULSE 113; RESP 16; TEMP 37.2; O2SAT 98
== END 2023-10-01 12:16 | disposition home or self-care (01) ==
PROVIDERS: Emergency Provider Emergency Medicine; Visit Provider Emergency Medicine
DX: R40.4 Transient alteration of awareness (principal); K08.89 Other specified disorders of teeth and supporting structures; N28.9 Disorder of kidney and ureter, unspecified; R73.9 Hyperglycemia, unspecified; Z79.899 Other long term (current) drug therapy; Z57.39 Occupational exposure to other air contaminants
CPT/HCPCS: 80048; 85025; 99284